=== PATIENT | female | born 1955 | race Caucasian/White ===

== ENCOUNTER 2018-08-15 01:29 | Inpatient (IN) | payer BC ==
--- NOTE | 2018-08-14 11:06 | LEVENE H&P ---
DATE OF ADMISSION: August 14, 2018 IDENTIFICATION/CHIEF COMPLAINT The patient is a 63-year-old woman with a chief complaint of right knee pain. HISTORY OF PRESENT ILLNESS The patient has a long-standing history of knee arthritis, progressively pain and debilitating, refractory to conservative care. Surgery is indicated to relieve symptoms after failure of nonoperative measures. PAST MEDICAL HISTORY Generally excellent health. PAST SURGICAL HISTORY 1. Right knee ACL surgery and subsequent right knee scope. 2. She has also had a skin cancer removed with no evidence of recurrent disease. ALLERGIES Penicillin, it causes a rash. CURRENT MEDICATIONS She takes no prescription medicine on a daily basis. FAMILY HISTORY Non-contributory. SOCIAL HISTORY Notable for smoking half-pack a day for 30 years. She denies alcohol use or abuse. REVIEW OF SYSTEMS Notable for neurofibromatosis. PHYSICAL EXAMINATION GENERAL: This is a healthy female. HEENT: Normocephalic, atraumatic. Extraocular muscles intact. NECK: Supple, non-tender. LUNGS: Clear to auscultation bilaterally. HEART: Regular rate and rhythm. ABDOMEN: Soft. BACK: Non-tender without deformity. ORTHOPEDIC EXAMINATION The right knee is stiff with crepitus noted. Effusion is present. Extensor function is intact. Gross stability is good. Neurovascular function intact. RADIOGRAPHS Demonstrate end-stage DJD. ASSESSMENT End-stage degenerative joint disease, progressively pain and debilitating, refractory to conservative care. PLAN Per patient request, we will proceed with total knee arthroplasty. The nature of the procedure, the risks, benefits, the anticipated rehabilitative course were reviewed. Risks include but are not limited to , major medical or anesthetic complication, infection, neurovascular injury, blood transfusion, stiffness, scarring, fracture, tendon rupture, instability, implant loosening, migration or failure, persistent or recurrent pain or symptoms, need for additional surgery and other unforeseen. She understands and wishes to proceed. A signed permit is placed in the chart. No guarantees are given or implied. [facility]PITALJuan Jose
[2018-08-14 13:42] LABS: INR 0.96
[~2018-08-15] VITALS: Ht 160 cm; Wt 63.5 kg
[2018-08-15] VITALS (13 sets, daily range): BP systolic 102–146; BP diastolic 49–76
[~2018-08-15 01:29] MED LIST: ROPIVACAINE 0.2% 400 MG/200ML 250 ML CONINFUS ONE
[2018-08-15] MEDS ORDERED: TRANEXAMIC AC 1000 MG/10ML SDV 1,000 MG in DEXTROSE 5% 50 ML BAG 50 ML IV ONE (06:15)
[2018-08-15] MEDS ORDERED: MIDAZOLAM 2 MG/2 ML VIAL IVP PRN (06:15)
[2018-08-15] MEDS ORDERED: LIDOCAINE/SOD BICARB 8.4% SYR ID ONE (06:15)
[2018-08-15] MEDS ORDERED: FAMOTIDINE 20 MG TAB PO ONE (06:15)
[2018-08-15] MEDS ORDERED: PREGABALIN 150 MG CAPSULE PO ONE (06:15)
[2018-08-15] MEDS ORDERED: CELECOXIB 200 MG CAP PO ONE (06:15)
[2018-08-15] MEDS ORDERED: NORMOSOL R SOLN(*) 1000 ML BAG 1,000 ML IV PRN ×2 (06:15→09:50)
[2018-08-15] MEDS ORDERED: ACETAMINOPHEN 500 MG TAB PO ONE (06:15)
[2018-08-15] MEDS ORDERED: CLINDAMYCIN(*) 900 MG/NS 50 ML 50 ML IVPB ONE (06:15)
[2018-08-15] MEDS ORDERED: ROPIVACAINE/EPI/CLONIDINE/KET 50 ML SYRINGE INJ ONE (06:15)
[2018-08-15] MEDS ORDERED: fentaNYL CITR 100 MCG/2 ML AMP ONE (06:19)
[2018-08-15] MEDS ORDERED: VANCOMYCIN 1 GM VIAL ONE (06:46)
[2018-08-15] MEDS ORDERED: PROPOFOL(*)1000 MG/100 ML VIAL 100 ML ONE (06:52)
[2018-08-15] MEDS ORDERED: ePHEDrine 25 MG/5 ML DISP.SYR IVP ONE (07:05)
--- NOTE | 2018-08-15 09:42 | OPERATIVE REPORT 1 ---
EVENT DATE: August 15, 2018 SURGEON: Prosper Davis MD ANESTHESIOLOGIST: Michelet Villa MD ANESTHESIA: General plus spinal. MAILROOM CLERK: Everton Ragland PA-C PREOPERATIVE DIAGNOSIS Right knee posttraumatic arthritis. POSTOPERATIVE DIAGNOSIS Right knee posttraumatic arthritis. PROCEDURE PERFORMED Right total knee arthroplasty. ESTIMATED BLOOD LOSS Minimal. DRAINS None. SPECIMENS None. COMPLICATIONS None apparent. TOURNIQUET TIME 54 minutes. IMPLANTS USED [place] Triathlon knee system, a 3 right PS femur, a 3 standard tibial baseplate, a 60 mm PS tibial tray liner and a 29 mm universal symmetric all polyethylene patella button, polyethylene X3. INDICATIONS Cathleen has a remote history of ACL reconstruction. She has gone on to develop severe posttraumatic arthritis, painful and debilitating and refractory to conservative care. Surgery is indicated to relieve symptoms after failure of nonoperative measures. DESCRIPTION OF PROCEDURE The patient was taken to the operating room and placed supine on the operating table. Spinal block was administered by the anesthesiologist. General analgesia was induced. Antibiotics were administered IV along with TXA. The right lower extremity was prepped and draped in the usual sterile fashion for orthopedic surgery. The old scar, which was medial to peripatellar curvilinear scar was opened up, extended proximally and distally. It was carried down through the skin and scar tissue of the extensor mechanism. Full thickness flaps were developed far enough to allow medial parapatellar arthrotomy to be performed. The extensor mechanism distally is extensively scarred and with loose bodies and severe anterior interval scarring. This is carefully released, taking great care to avoid injury to the patellar tendon. This finally allows the patella to be everted. The knee is brought into flexed position. The fat pad, anterior horns of the menisci and cruciate ligaments were debrided. Subperiosteal medial release was initiated in titrated fashion to start to balance the knee. A step drill was used to enter the distal femur. A 10-inch long alignment guide was used to engage the isthmus. Cut was set for 6 degrees of valgus relative to the anatomic axis. A 10 mm resection block was applied and pinned. Cut was made with an oscillating saw. The AP sizing guide was applied to the distal femoral cut and positioned for 3 degrees of external rotation relative to the posterior condyles. A size 3 was optimal without risk of notching. The four-in-one cutting block was applied. Anterior, posterior, posterior chamfer and anterior chamfer cuts were made respectively. A PS block was applied and centered mediolateral and the bone was resected from the box. The trial femur has nice [id number] fit. Attention was turned to tibial preparation. The extramedullary guide was applied and positioned for varus, valgus, posterior slope and rotation. This was set to resect 9 from the relatively intact lateral tibial plateau. It was dropped down another 1 to 2 mm to ensure an adequate cut. The block was pinned, extramedullary alignment check was made and the cut was made with an oscillating saw. After osteophyte removal, gaps were balanced and symmetric. No additional release is required. 3 tibial baseplate provides optimal bony coverage without soft tissue overhang. This was inserted along with trial liner and trial femur. The knee was brought to full extension. The patella was taken from a starting thickness of 22 mm to a residual of 14 with patellar clamp and oscillating saw. The 29 provides optimal bony coverage without soft tissue overhang. Lug holes were drilled. The patella tracts nicely with a no-touch technique. Final tibial preparation consisted of ensuring appropriate rotational and translational position of the component. The fin was punched. The patient has three Stax jad which were partially beneath the extensor mechanism. It was felt it would be extremely hazardous to remove these jad and jeopardize the integrity of the extensor mechanism. Therefore, an attempt was made to bend or break the upward staple with the punch for the keel on the tibial baseplate and this was effectively accomplished without bone loss or damage. The surfaces were copiously lavaged. Meticulous hemostasis assured. Pain cocktail was infiltrated throughout the wound. Components were cemented in a single stage. When the cement was fully polymerized, the tourniquet was deflated and hemostasis was assured. The 16 PS tibial tray liner fills up the gap ideally. We allowed the knee to drop to full extension without hyperextension, providing optimal soft tissue tension and stability. The tray was lavaged and dried. Actual liner was locked into the baseplate. The joint was reduced. Arthrotomy was closed in flexion with #2 Ethibond, subcutaneous tissue with 3-0 Vicryl and the skin with surgical jad. Xeroform was applied followed by a dry, sterile dressing and a compression wrap. The patient was awakened from the anesthesia and taken to the recovery room in stable condition, having tolerated the procedure well. Plan is for standard TKA rehab protocol. MAXI
[2018-08-15] MEDS ORDERED: diphenhydrAMINE 50 MG/ML VIAL IVP PRN (09:50)
[2018-08-15] MEDS ORDERED: FLUSH 10 ML SYR IVP PRN (09:50)
[2018-08-15] MEDS ORDERED: MORPHINE 2 MG/ML SYR IVP PRN (09:50)
[2018-08-15] MEDS ORDERED: BENZOCAINE/MENTHOL 1 EACH LOZG PO PRN (09:50)
[2018-08-15] MEDS ORDERED: DIAZEPAM 5 MG TAB PO PRN (09:50)
[2018-08-15] MEDS ORDERED: MAGNESIUM HYDROXIDE* 30ML UDCP PO PRN (09:50)
[2018-08-15] MEDS ORDERED: diphenhydrAMINE 25 MG CAP PO PRN (09:50)
[2018-08-15] MEDS ORDERED: PROMETHAZINE 25 MG/ML 1 ML AMP IVP PRN (09:50)
[2018-08-15] MEDS ORDERED: ZOLPIDEM TARTRATE 5 MG TAB PO PRN (09:50)
[2018-08-15] MEDS ORDERED: BISACODYL 10 MG SUPP PR PRN (09:50)
[2018-08-15] MEDS ORDERED: ACETAMINOPHEN 325 MG TAB PO PRN (09:50)
--- NOTE | 2018-08-15 10:57 | Hospitalist Consultation ---
History of Present Illness Requesting Physician Dr. Davis Reason for Consult Medical Management Chief Complaint s/p right knee replacement History of Present Illness She was admitted s/p right knee replacement. It is reported the surgery went well and without complication. History Home Meds No Active Prescriptions or Reported Meds Allergies: Coded Allergies: Penicillins (Verified Allergy, Intermediate, HIVES, 08/09/18) Hx Smoking: Yes (1PPD X 30 YEARS) Smoking Status: Former Smoker When Quit Tobacco?: 2016 Caffeine Intake: Coffee Caffeine/Cups Per Day: 3/DAY Hx Alcohol Use: No Hx Substance Use Disorder: No Social Drug Use: Never History of IV Drug Use: No Review of Systems All Systems Reviewed/Normal: Yes, Except as Noted Gastrointestinal: Nausea Exam Vital Signs Vital Signs Date Time Temp Pulse Resp B/P (MAP) Pulse Ox O2 Delivery O2 Flow Rate FiO2 08/15/18 10:42 94 Nasal Cannula 1.0 08/15/18 10:32 96.3 71 16 130/72 (91) General Appearance: Alert, Awake, No Acute Distress, Afebrile Neuro: No Gross deficits Cardiovascular: Regular Rate and Rhythm Respiratory: No Respiratory Distress, Clear to Auscultation Extremities: Other (small nodules present to all of skin exposed) Psych: Alert & Oriented X3, Appropriate Mood & Affect Assessment and Plan Problems: (1) Status post right knee replacement Status: Acute Assessment & Plan: Followed by Dr. Davis. She will be placed on Aspirin for DVT prophylaxis. She has no medical problems, hospitalist service to follow for any medical needs. Venous Thromboembolism Antithrombotics Is Pt On Any Antithrombotics?: No Exam Sepsis Risk: No Definite Risk PANCHO SPEARS VICE PRESIDENT UNDERWRITING Aug 15, 2018 10:57
--- NOTE | 2018-08-15 11:38 | NUR ---
Physical Therapy Impression PT eval complete. Pt ambulated 25 ft w/ CGAx1 and use of RW. SpO2 was >90% on room air before ambulation so O2 not used for ambulation. Pt handled ambulation well, only complaining of being nauseous. Pt completed bed mobility w/ SBA and sit<>stand xfers w/ CGAx1. Following treatment, Pt left with CPM on from 0 to 30 degrees and in room. Pt would benefit from further skilled PT care to improve strength/ROM to functional levels. OP therapy anticipated at discharge. Physical Therapy Goals 1. Jori bed mobility 2. Jori transfers 3. Jori ambulation for 150 feet with use of RW 4. Jori ability to ascend/descend 1 stair. 5. Independent use of CPM Patient's Goals
--- NOTE | 2018-08-15 14:13 | RADIOLOGY IMAGING REPORT ---
FACILITY: [facility] PATIENT NAME: Cathleen Perdomo : 1955 MR: [id number] V: [id number] EXAM DATE: ORDERING PHYSICIAN: KILLIAN BENNETT TECHNOLOGIST: Location: [facility] [place] Patient: Cathleen Perdomo : 1955 Visit/Account:[id number] Date of Sevice: 08/15/2018 Exam type: KNEE LIMITED RIGHT History: S/P TOTAL KNEE ARTHROPLASTY Comparison: None. Findings: Two views of the right knee demonstrates a right knee arthroplasty in good anatomic alignment. Skin jad and soft tissue gas projects over the anterior aspect of this postoperative knee IMPRESSION: 1. As above Report Dictated By: Maylin Espitia MD at 08/15/2018 2:08 PM Report E-Signed By: Maylin Espitia MD at 08/15/2018 2:09 PM WSN:[id number]
[2018-08-15] MEDS: CLINDAMYCIN(*) 900 MG/NS 50 ML 50 ML IVPB SCH ×2 (14:23→22:18)
[2018-08-15] MEDS: CELECOXIB 200 MG CAP PO SCH (16:43)
[2018-08-15] MEDS: APAP/HYDROCODONE 325/7.5 TAB PO PRN (21:24)
[2018-08-16 02:46] VITALS: BP 121/63
[2018-08-16] MEDS: APAP/HYDROCODONE 325/7.5 TAB PO PRN ×4 (03:33→19:33)
[2018-08-16] MEDS: CLINDAMYCIN(*) 900 MG/NS 50 ML 50 ML IVPB SCH (06:18)
[2018-08-16 07:17] VITALS: BP 120/65
[2018-08-16] MEDS: CELECOXIB 200 MG CAP PO SCH ×2 (07:31→16:19)
[2018-08-16] MEDS: ASPIRIN 325 MG TAB PO SCH (08:40)
--- NOTE | 2018-08-16 08:58 | NUR ---
This Physical Therapist or Spotter Driver was present for the entire physical therapy session directing the services, making the skilled judgement, and was not engaged in treating another patient or doing another task at the same time as the treatment session dated 08/15/18 at 1138am. Addendum: 08/16/18 at 0859 by FRANSISCO HARRISON PT Amended: Links added.
[2018-08-16] MEDS ORDERED: ASPI-757 PO (09:10)
--- NOTE | 2018-08-16 09:12 | Hospitalist Progress Note ---
Subjective Progress Notes Subjective She was admitted s/p knee replacement. She had no acute events overnight. Patient Complains of: Cardiovascular: No: Chest Pain Respiratory: No: Shortness of Breath Physical Exam Vital Signs Date Time Temp Pulse Resp B/P (MAP) Pulse Ox O2 Delivery O2 Flow Rate FiO2 08/16/18 08:53 79 08/16/18 07:41 Nasal Cannula 2.0 08/16/18 07:17 98.2 82 120/65 (83) 08/16/18 02:46 16 Intake and Output 08/16/18 01:00 Intake Total 3130 ml Balance 3130 ml Intake Oral 980 ml IV Total 2150 ml # Voids 3 General Appearance: Alert, Awake, No Acute Distress, Afebrile Neuro: No Gross deficits Cardiovascular: Regular Rate and Rhythm Respiratory: No Respiratory Distress, Clear to Auscultation GI: Soft and Non-Tender Psych: Alert & Oriented X3, Appropriate Mood & Affect Assessment and Plan Problems: (1) Status post right knee replacement Status: Acute Assessment & Plan: Followed by Dr. Davis. She will be placed on Aspirin for DVT prophylaxis. She has no medical problems, hospitalist service to follow for any medical needs. Exam Sepsis Risk: No Definite Risk PANCHO SPEARS SPACE SCIENCES DIRECTOR Aug 16, 2018 09:12
[2018-08-16 10:54] VITALS: BP 127/67
--- NOTE | 2018-08-16 11:53 | NUR ---
This Physical Therapist or Agriculture Scientist was present for the entire physical therapy session directing the services, making the skilled judgement, and was not engaged in treating another patient or doing another task at the same time as the treatment session. Addendum: 08/16/18 at 1153 by FRANSISCO HARRISON PT Amended: Links added.
--- NOTE | 2018-08-16 11:55 | NUR ---
Physical Therapy Impression Pt demonsrtated improved tolerance to ambulation, good therex performance, and was not limited by pain. Pt was SBA for supine to sit and sit<>stand xfers. Pt ambulated 115 ft. w/ CGAx1, use of RW, and O2. Pt tolerated ambulation well with improved gait pattern and speed. Pt performed therex sitting in reclining chair with legs elevated: ankle pumps, quad sets, glute sets, heel slides. Pt required minimal verbal cues and demonsrtated good ROM on quad sets/ heel slides. Pt was left sitting in reclining chair with legs elevated and present in room. Pt would benefit from further skilled PT care to further improve strength/ROM and educate/perform safe stair ambulation. OP PT anticipated at discharge. Physical Therapy Goals 1. Jori bed mobility 2. Jori transfers 3. Jori ambulation for 150 feet with use of RW 4. Jori ability to ascend/descend 1 stair. 5. Independent use of CPM Patient's Goals
[2018-08-16 14:24] VITALS: BP 125/67
--- NOTE | 2018-08-16 14:58 | NUR ---
Physical Therapy Impression Despite increased pain, Pt tolerated ambulation well and had no difficulties with stair training. Only assistance required for bed mobility was Michelle lifting surgical leg into bed for sit to supine. SBA for sit<>stand xfers. Pt ambulated 115 ft. with CGAx1, RW, and O2. Pt had little difficulties with ambulation, only reporting some nausea before returning to room. Pt ascended/desceneded 1 step w/ CGAx1 and verbal cues for foot sequencing. Pt would benefit from further skilled PT care to restore strength/ROM to functional levels. Rec OP PT at discharge. Physical Therapy Goals 1. Jori bed mobility 2. Jori transfers 3. Jori ambulation for 150 feet with use of RW 4. Jori ability to ascend/descend 1 stair. 5. Independent use of CPM Patient's Goals
--- NOTE | 2018-08-16 14:58 | NUR ---
This Physical Therapist or Field Horticultural Specialty Grower was present for the entire physical therapy session directing the services, making the skilled judgement, and was not engaged in treating another patient or doing another task at the same time as the treatment session. Addendum: 08/16/18 at 1458 by FRANSISCO HARRISON PT Amended: Links added.
[2018-08-16 19:11] VITALS: BP 129/71
[2018-08-16 23:49] VITALS: BP 112/67
[2018-08-17 02:00] VITALS: BP 120/89
[2018-08-17] MEDS: APAP/HYDROCODONE 325/7.5 TAB PO PRN ×2 (02:02→10:28)
[2018-08-17 07:13] VITALS: BP 133/73
[2018-08-17] MEDS: CELECOXIB 200 MG CAP PO SCH (07:54)
[2018-08-17] MEDS: ASPIRIN 325 MG TAB PO SCH (08:27)
[2018-08-17] MEDS ORDERED: DOCU-416 PO (09:14)
[2018-08-17] MEDS ORDERED: DOCUSATE SODIUM 100 MG CAP PO SCH (09:15)
[2018-08-17] MEDS ORDERED: HYDR-654 PO (10:21)
--- NOTE | 2018-08-17 10:56 | NUR ---
This Physical Therapist or Transit Driver was present for the entire physical therapy session directing the services, making the skilled judgement, and was not engaged in treating another patient or doing another task at the same time as the treatment session. Addendum: 08/17/18 at 1056 by FRANSISCO HARRISON PT Amended: Links added.
--- NOTE | 2018-08-17 11:35 | Hospitalist Progress Note ---
Subjective Progress Notes Subjective She was admitted s/p knee replacement. She had no acute events overnight. Patient Complains of: Cardiovascular: No: Chest Pain Respiratory: No: Shortness of Breath Physical Exam Vital Signs Date Time Temp Pulse Resp B/P (MAP) Pulse Ox O2 Delivery O2 Flow Rate FiO2 08/17/18 07:57 71 08/17/18 07:57 Nasal Cannula 2.0 08/17/18 07:13 98.3 85 18 133/73 (93) Intake and Output 08/17/18 06:59 Intake Total 1570 ml Balance 1570 ml Intake Oral 1570 ml # Voids 6 General Appearance: Alert, Awake, No Acute Distress, Afebrile Neuro: No Gross deficits Cardiovascular: Regular Rate and Rhythm Respiratory: No Respiratory Distress, Clear to Auscultation GI: Soft and Non-Tender Psych: Alert & Oriented X3, Appropriate Mood & Affect Assessment and Plan Problems: (1) Status post right knee replacement Status: Acute Assessment & Plan: Followed by Dr. Davis. She will be placed on Aspirin for DVT prophylaxis. She has no medical problems, hospitalist service to follow for any medical needs. Will add Colace to help with constipation. Exam Sepsis Risk: No Definite Risk PANCHO SPEARS ECHOCARDIOGRAPH TECH Aug 17, 2018 11:35
== END 2018-08-17 10:58 | disposition home or self-care (01) | DRG 470 ==
LOC: OR 01:29 → INTOOBSV 10:25 → MED 10:25 → OBSVTOIN 10:25 → UNDODISIN 08-17 10:58
PROVIDERS: ADMIT Orthopaedic Surgery; ATTEND Orthopaedic Surgery
PROC: 0SRC0J9 Replacement of Right Knee Joint with Synthetic Substitute, Cemented, Open Approach (ICD-10-PCS; principal; 2018-08-15 07:14)
DX: M17.31 Unilateral post-traumatic osteoarthritis, right knee (principal); Z88.0 Allergy status to penicillin; Z87.891 Personal history of nicotine dependence; Z85.828 Personal history of other malignant neoplasm of skin; Q85.00 Neurofibromatosis, unspecified
CPT/HCPCS: 36415; 85610; 86850; 86900; 86901; 97161; C1713; C1776; J2250; J2704; J3010; J3370; J3490; J7060